=== PATIENT | female | born 1930 | race Caucasian/White ===

== ENCOUNTER 2016-07-01 10:35 | Emergency (ER) | payer MEDICARE, BC, OTHER ==
--- NOTE | ~2016-07-01 | EKG ---
PATIENT: RICK SHARMA UNIT #: [id number] Ventricular Rate: 89 BPM Atrial Rate: 89 BPM P-R Interval: 176 ms QRS Duration: 76 ms Q-T Interval: 384 ms QTC Calculation(Bezet): 467 ms P Dennison: 4 degrees Calculated R Dennison: 7 degrees Calculated T Dennison: 29 degrees Diagnosis Line: Normal sinus rhythm Diagnosis Line: Normal ECG Diagnosis Line: No previous ECGs available Diagnosis Line: Confirmed by PAULINE IYER MD ([id number]) on Diagnosis Line: 08/15/2016 7:00:18 AM INTERPRETING MD: SHABANA
--- NOTE | ~2016-07-01 | CR63 ---
[facility]. [facility] A Service of [facility] [place] & [facility] RADIOLOGY TEXT RESULTS PATIENT: RICK SHARMA LOCATION: SED : 29 UNIT #: [id number] AGE: [address]: Temo Keys MD SEX: F ORDER DR: [id number] [address] [address] [id number] E MR#: [id number] Acc #: [id number] NAME: RICK SHARMA : 1930 SEX: F STUDY DATE/TIME: 07/01/2016 12:26 UNIT: SED ROOM: STUDY DESCRIPTION: CR Chest 2 View Attending Physician: Temo Keys M.D. Ordering Physician: Temo Keys M.D. Primary Care Physician: Darren Reich M.D. MEDICAL IMAGING REPORT This report is preliminary unless electronic signature is present. EXAM PA and lateral chest INDICATIONS 86-year-old female with history of wheezing for several weeks COMPARISON 06/24/2011 FINDINGS There is no acute-appearing infiltrate. Heart size stable. Degenerative change thoracic spine. IMPRESSION No active disease. Dictated by... Keagan David M.D. THIS IS AN ELECTRONICALLY VERIFIED REPORT Keagan David M.D. at 07/02/2016 4:19 PM ARS/to TD: 07/01/2016 18:48 JOB #: [id number] MEDICAL IMAGING REPORT
--- NOTE | ~2016-07-01 | CR229 ---
[facility] A Service of [facility] & [facility] RADIOLOGY TEXT RESULTS PATIENT: RICK SHARMA LOCATION: SED : 29 UNIT #: [id number] AGE: [address]: Temo Keys MD SEX: F ORDER DR: [id number] [address] [address] [id number] E MR#: [id number] Acc #: [id number] NAME: RICK SHARMA : 1930 SEX: F STUDY DATE/TIME: UNIT: SED ROOM: STUDY DESCRIPTION: CR Shoulder Min 2 View Lt Attending Physician: Temo Keys M.D. Ordering Physician: Temo Keys M.D. Primary Care Physician: Darren Reich M.D. MEDICAL IMAGING REPORT This report is preliminary unless electronic signature is present. EXAM Left shoulder 07/01/2016 1231 hours HISTORY 86-year-old who fell several weeks ago with left shoulder pain. Patient was evaluated at the time of fall and no fracture was seen. Patient complains of persistent left shoulder and left hip pain. COMPARISON Chest x-ray 10/14/2012 FINDINGS AP views in internal-external rotation and a scapula Y-view are performed. There is significant degenerative change at the glenohumeral joint. There is deformity of the proximal humerus related to old healed fracture. There is no definite acute fracture. There is some inferior displacement of the distal clavicle relative to the acromion which appears to represent a change from chest film of 06/24/2011. This area is not well seen on the more recent chest film 10/14/2012. 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 The clavicle is noted to be inferiorly displaced relative to the acromion, which represents a change from chest film 06/24/2011, but may or may not be acute. No clavicle fracture is seen. Dictated by... Lora Restrepo M.D. THIS IS AN ELECTRONICALLY VERIFIED REPORT Lora Restrepo M.D. at 07/02/2016 9:25 AM SMM/to [facility] A Service of [facility] & [facility] RADIOLOGY TEXT RESULTS PATIENT: RICK SHARMA [place] [facility] [place] UNIT #: [id number] AGE: [address]: Temo Keys MD SEX: F ORDER DR: TD: 07/01/2016 18:49 JOB #: [id number] MEDICAL IMAGING REPORT
--- NOTE | ~2016-07-01 | CR150 ---
[facility]. [facility] A Service of [facility] & [facility] RADIOLOGY TEXT RESULTS PATIENT: RICK SHARMA LOCATION: SED : 29 UNIT #: [id number] AGE: [address]: Temo Keys MD SEX: F ORDER DR: [id number] [address] [address] [id number] E MR#: [id number] Acc #: [id number] NAME: RICK SHARMA : 1930 SEX: F STUDY DATE/TIME: 07/01/2016 12:16 UNIT: SED ROOM: STUDY DESCRIPTION: CR Hip Min 2 Views Lt Attending Physician: Temo Keys M.D. Ordering Physician: Temo Keys M.D. Primary Care Physician: Darren Reich M.D. MEDICAL IMAGING REPORT This report is preliminary unless electronic signature is present. EXAM Left hip 2 views INDICATION 86-year-old female with left hip pain for 2 months. COMPARISON There are no comparisons available. FINDINGS There is no evidence of fracture or dislocation. Degenerative changes of the lower lumbar spine. Vascular calcifications. IMPRESSION No evidence of fracture or dislocation. Dictated by... Keagan David M.D. THIS IS AN ELECTRONICALLY VERIFIED REPORT Keagan David M.D. at 07/02/2016 4:18 PM Charles TD: 07/01/2016 18:42 JOB #: [id number] MEDICAL IMAGING REPORT
[2016-07-01] MEDS ORDERED: ARICEPT PO (10:39)
[2016-07-01] MEDS ORDERED: IMODIUM2 MG (10:39)
[2016-07-01] MEDS ORDERED: AZO BLADDER CO300 MG (10:39)
[2016-07-01] MEDS ORDERED: LASIX (10:39)
[2016-07-01] MEDS ORDERED: B-121000 MC1 PO (10:40)
[2016-07-01] MEDS ORDERED: MAALOX ADVANCE770 ML (10:40)
[2016-07-01] MEDS ORDERED: TIROSINT25 MCG PO (10:40)
[2016-07-01] MEDS ORDERED: MOBIC (10:40)
[2016-07-01] MEDS ORDERED: PATADAY2.5 ML OU (10:41)
[2016-07-01] MEDS ORDERED: NYSTAT-RX8 GM (10:41)
[2016-07-01] MEDS ORDERED: PROTONIX20 MG DOB (10:41)
[2016-07-01] MEDS ORDERED: METOPROLOL TAR25 MG DOB (10:41)
[2016-07-01] MEDS ORDERED: ANIMAL SHAPES1 EAC2 PO (10:41)
[2016-07-01] MEDS ORDERED: VOLTAREN100 GM TOP (10:42)
[2016-07-01] MEDS ORDERED: REGLAN (10:42)
[2016-07-01] MEDS ORDERED: VITAMIN D400 UNI2 (10:42)
[2016-07-01] MEDS ORDERED: KEFLEX500 MG PO (10:43)
[2016-07-01] MEDS ORDERED: ROCEPHIN IV (10:43)
[2016-07-01] MEDS ORDERED: MUCINEX DM ER1 EACH PO (10:43)
[2016-07-01 11:45] LABS: BASOPHIL% 0.8 % (0-2.5); EOSINOPHIL% 0.9 % (0.0-7.0); HEMATOCRIT 41.7 % (35.0-45.0); HEMOGLOBIN 13.4 gm/dL (12.0-16.0); LYMPHOCYTE# 1.3 X10e3 (1.0-3.5); LYMPHOCYTE% 24.5 % (17.0-45.0); MEAN CELL VOLUME 88.7 FL (83-96); MEAN CORPUSCULAR HEMOGLOBIN 28.6 PG (28-34); MEAN CORPUSCULAR HGB CONC 32.2 g/dL (30-36); MEAN PLATELET VOLUME 8.3 FL (6.5-11.5); MONOCYTE# 0.5 X10e3 (0-1.0); MONOCYTE% 9.9 % (3.0-12.0); NEUTROPHIL# 3.4 X10e3 (1.5-7.1); NEUTROPHIL% 63.9 % (40-75); PLATELET COUNT 155 X10e3 (140-420); RED CELL DISTRIBUTION WIDTH 14.4 % (11.0-15.5); WHITE BLOOD COUNT 5.4 X10e3 (4.0-10.5)
[2016-07-01 11:57] LABS: DIFF IND NO
[2016-07-01 12:02] LABS: POC - CKMB 1.1 ng/mL (0.0-7.9); POC - MYOGLOBIN 90.9 ng/mL (0.0-169.0); POC - TROPONIN <0.05 ng/mL (<=0.05)
[2016-07-01 12:18] LABS: ALBUMIN SERUM 3.5 g/dL (3.5-5.0); BILIRUBIN, DIRECT 0.1 mg/dL (0.0-0.2); BILIRUBIN,INDIRECT 0.4 mg/dL (0.0-0.9); BILIRUBIN,TOTAL 0.5 mg/dL (0.2-2.0); BUN/CREATININE RATIO 12.3; CALCIUM SERUM 8.5 mg/dL (8.4-10.2); CREATININE SERUM 1.3 mg/dL (0.6-1.4); GLOM FILT RATE Estimated 41.2 mL/min (>60); POTASSIUM 3.6 mmol/L (3.5-5.1); PROTEIN TOTAL SERUM 6.9 g/dL (6.0-8.3)
== END 2016-07-01 17:40 | disposition hospice, home (50) ==
LOC: SED 10:35
PROVIDERS: Emergency Medicine
DX: R06.02 Shortness of breath (principal); R05 Cough; E11.9 Type 2 diabetes mellitus without complications; F03.90 Unspecified dementia, unspecified severity, without behavioral disturbance, psychotic disturbance, mood disturbance, and anxiety; Z88.5 Allergy status to narcotic agent; Z79.899 Other long term (current) drug therapy
CPT/HCPCS: 36415; 71020; 73030; 73502; 80048; 80076; 82553; 83605; 83874; 83880; 84484; 85025; 87040; 93005; 94640; 96365; 99285; J2543; J3370